=== PATIENT | female | born 1940 | race Caucasian/White ===

== ENCOUNTER 2018-11-03 13:32 | Outpatient (CLI) | payer MEDICARE, OTHER ==
--- NOTE | 2018-11-03 15:54 | Mammography Report ---
Reason: LUMP Procedure Date: 11/03/2018 Accession Number: [id number] / [id number] Procedure: YASSINE - Diagnostic Dig Bilat CPT Code: FULL RESULT: EXAM: Diagnostic Dig Bilat DATE: 11/03/2018 2:32 PM CLINICAL HISTORY: Diagnostic mammogram. Right breast pain. History of nulliparity. History of breast biopsy in the 1970s. TECHNIQUE: Bilateral CC and MLO views were obtained. COMPARISON: 08/22/2016 through 02/26/2011. FINDINGS: The breasts demonstrate scattered fibroglandular densities bilaterally. There are coarse typically benign calcifications. No suspicious calcifications, architectural distortion or masses identified. IMPRESSION: Benign findings RECOMMENDATION: Recommend routine annual Screening mammography unless otherwise clinically indicated. BIRADS CATEGORY 2: Benign findings STANDARD QUALIFYING STATEMENTS: 1. This examination was not reviewed with the aid of Computer-Aided Detection (CAD). 2. A negative or benign imaging report should not delay biopsy if clinically suspicious findings are present. Consider surgical consultation if warrented. More than 5% of cancers are not identified by imaging. 3. Dense breasts may obscure an underlying neoplasm. 4. This examination was reviewed with the aid of 3D imaging (tomography).
== END 2018-11-03 13:33 | disposition home or self-care (01) ==
LOC: DI 13:32
PROVIDERS: ATTEND Nurse Practitioner Family
DX: N64.4 Mastodynia (principal)
CPT/HCPCS: 77066

== ENCOUNTER 2020-06-20 12:54 | Outpatient (CLI) | payer MEDICARE, OTHER | END 2020-06-20 12:55 | disposition home or self-care (01) | LOC: COV 12:54 | PROVIDERS: ATTEND Family Medicine | DX: R05 Cough (principal); R06.02 Shortness of breath; R53.83 Other fatigue; M79.10 Myalgia, unspecified site; R19.7 Diarrhea, unspecified; Z20.828 Contact with and (suspected) exposure to other viral communicable diseases ==

== ENCOUNTER 2020-06-23 10:43 | Outpatient (CLI) | payer MEDICARE, OTHER ==
--- NOTE | 2020-06-23 11:54 | XRAY Report ---
PROCEDURE: Chest 2 View X-Ray INDICATIONS: Fatigue, dyspnea TECHNIQUE: 2 view(s) of the chest. COMPARISON: None. FINDINGS: Surgical changes and devices: None. Lungs and pleura: No pleural effusions or pneumothorax. Lungs are clear. Mediastinum: Mediastinal contours are normal. Heart size is normal. Bones and chest wall: No suspicious bony abnormalities. Soft tissues appear unremarkable. IMPRESSION: No acute cardiopulmonary process demonstrated radiographically. Reviewed by: Nate Guaman MD on 06/23/2020 11:52 AM PDT Approved by: Nate Guaman MD on 06/23/2020 11:52 AM PDT Station ID: [id number]
== END 2020-06-23 10:44 | disposition home or self-care (01) ==
LOC: DI 10:43
PROVIDERS: ATTEND Internal Medicine
DX: R06.09 Other forms of dyspnea (principal); Z13.6 Encounter for screening for cardiovascular disorders; R53.83 Other fatigue
CPT/HCPCS: 71046

== ENCOUNTER 2020-06-29 11:47 | Outpatient (CLI) | payer MEDICARE, OTHER | END 2020-06-29 11:48 | disposition home or self-care (01) | LOC: RT 11:47 | PROVIDERS: ATTEND Internal Medicine Cardiovascular Disease | DX: R06.09 Other forms of dyspnea (principal) | CPT/HCPCS: 93005 ==

== ENCOUNTER 2021-10-07 07:35 | Outpatient (CLI) | payer MEDICARE, OTHER ==
--- NOTE | 2021-10-08 09:19 | Ultrasound Report ---
PROCEDURE: Pelvic w/Transvaginal INDICATIONS: ACUTE PELVIC PAIN TECHNIQUE: Real-time scanning was performed of the pelvic organs, with image documentation. Additional endovagi nal scanning was necessary due to incomplete visualization of the adnexal and endometrial structures by transabdominal scanning. COMPARISON: None. FINDINGS: No pathologic free abdominal or pelvic fluid. Uterus: Uterus is anteflexed and normal in size at 5.1 x 1.9 I3.1 cm. The endometrium measures 2 mm in combined thickness. There is a small amount of debris-containing fluid in the endocervix. Simple nabothian cyst is also present. Ovaries: Neither ovary was seen. No suspicious adnexal masses. IMPRESSION: 1. Debris-containing fluid in the endocervix may indicate cervical stenosis. 2. No suspicious adnexal mass. Reviewed by: Josselyn Goldman MD on 10/08/2021 9:18 AM PST Approved by: Josselyn Goldman MD on 10/08/2021 9:18 AM PST Station ID: [id number]
== END 2021-10-07 07:36 | disposition home or self-care (01) ==
LOC: DI 07:35
PROVIDERS: ATTEND Obstetrics & Gynecology
DX: R10.2 Pelvic and perineal pain (principal)

== ENCOUNTER 2022-03-15 08:14 | Emergency (ER) | payer MEDICARE, OTHER ==
[2022-03-15 08:29] VITALS: BP 140/84
--- NOTE | 2022-03-15 08:48 | ED Physician Documentation ---
PD HPI URI - Stated complaint Stated Complaint: C+ FEVER/FATIGUE - Chief complaint Chief Complaint: Heent - History obtained from History obtained from: Patient - History of Present Illness Timing - onset: How many days ago (3) Timing duration: Days (3) Timing details: Gradual onset, Still present Associated symptoms: Nasal congestion, Sore throat, Dry cough. No: Fever, Dyspnea, NVD Contributing factors: Sick contact (was caring for her sister 5 days ago for illness, and her sister ended up testing positive for COVID. patient with some symptoms now and did home test this morning that was positive. PMD suggested to ER for antiviral. No recent testing of renal function. no history of renal insuff. No home meds.) Improves by: Rest Worsened by: Activity Similar symptoms before: Has not had sx before Recently seen: Not recently seen (texted with PMD only.) Review of Systems Constitutional: reports: Myalgias. denies: Fever Nose: reports: Rhinorrhea / runny nose (for 1-2 days), Congestion Throat: reports: Sore throat (for 3 days) Cardiac: denies: Chest pain / pressure Respiratory: reports: Cough. denies: Dyspnea GI: denies: Abdominal Pain, Nausea, Vomiting, Diarrhea Skin: denies: Rash Neurologic: denies: Generalized weakness, Headache PD PAST MEDICAL HISTORY - Past Medical History Cardiovascular: None Respiratory: None Neuro: None Endocrine/Autoimmune: None - Allergies Allergies/Adverse Reactions: Allergies Allergy/AdvReac Type Severity Reaction Status Date / Time Penicillins Allergy Rash Verified 03/15/22 08:29 PD ED PE NORMAL - Vitals Vital signs reviewed: Yes - General General: Alert and oriented X 3, Well developed/nourished - HEENT HEENT: Moist mucous membranes, Pharynx benign - Neck Neck: Supple, no meningeal sign, No adenopathy - Cardiac Cardiac: RRR, No murmur - Respiratory Respiratory: Clear bilaterally - Abdomen Abdomen: Soft, Non tender - Derm Derm: Normal color, Warm and dry - Neuro Neuro: Alert and oriented X 3, No motor deficit, Normal speech Results - Vitals Vitals: Vital Signs - 24 hr 03/15/22 08:27 Temperature 35.9 C L Heart Rate 93 Respiratory 16 Rate Blood Pressure 140/84 H O2 Saturation 96 Oxygen O2 Source Room air - Labs Labs: Laboratory Tests 03/15/22 09:15 Sodium 135 Potassium 3.8 Chloride 99 L Carbon Dioxide 25 Anion Gap 11.0 BUN 9 Creatinine 1.0 Estimated GFR (MDRD) 53 L Glucose 109 H Calcium 9.4 Total Bilirubin 1.0 AST 22 ALT 18 Alkaline Phosphatase 83 Total Protein 7.4 Albumin 3.9 Globulin 3.5 Albumin/Globulin Ratio 1.1 Lipase 48 PD MEDICAL DECISION MAKING - ED course Complexity details: considered differential (Given age, she would be at higher risk for progression of disease. No recent renal function so can test that this morning and decision of best dosing for Paxlovid.), d/w patient Departure - Departure Disposition: Home, Self Care Clinical Impression: COVID-19 Condition: Stable Record reviewed to determine appropriate education?: Yes Follow-Up: Angel Bright MD [Primary Care Provider] - Comments: Take the pack Slo-Bid twice daily for 5 days/packet kit instructions. Stay well-hydrated. Tylenol if needed for fevers or pains. Return if worsening symptoms or trouble breathing. Your blood test shows just a very mild impairment of the kidney function so we gave you the dose appropriate for that.
[2022-03-15 09:38] LABS: ALBUMIN 3.9 g/dL (3.2-5.5); ALBUMIN/GLOBULIN RATIO 1.1 (1.0-2.2); CALCIUM 9.4 mg/dL (8.5-10.3); POTASSIUM 3.8 mmol/L (3.5-5.0); TOTAL PROTEIN 7.4 g/dL (6.7-8.2)
[2022-03-15] MEDS ORDERED: NIRMATRELVIR/RITONAVIR (RENAL) PREPACK PO STA (09:47)
== END 2022-03-15 09:56 | disposition home or self-care (01) ==
LOC: ED 08:14
DX: U07.1 COVID-19 (principal)
CPT/HCPCS: 36415; 80053; 83690; 99282; 99283; J3490

== ENCOUNTER 2023-04-10 09:26 | Outpatient (CLI) | payer MEDICARE, OTHER ==
[2023-04-10 09:41] LABS: BASOPHILS # (AUTO) 0.1 10^3/uL (0.0-0.1); BASOPHILS % (AUTO) 1.2 %; EOSINOPHILS # (AUTO) 0.3 10^3/uL (0.0-0.7); HCT - HEMATOCRIT 45.8 % (37.0-47.0); HGB - HEMOGLOBIN 14.9 g/dL (12.0-16.0); LYMPHOCYTES # (AUTO) 3.3 10^3/uL (1.5-3.5); LYMPHOCYTES % (AUTO) 39.3 %; MEAN CORPUSCULAR HEMOGLOBIN 29.6 pg (27.0-31.0); MEAN CORPUSCULAR HGB CONC 32.5 g/dL (32.0-36.0); MEAN CORPUSCULAR VOLUME 90.9 fL (81.0-99.0); MEAN PLATELET VOLUME 8.4 fL (7.9-10.8); MONOCYTES # (AUTO) 0.6 10^3/uL (0.0-1.0); NEUTROPHILS # (AUTO) 4.1 10^3/uL (1.5-6.6); NEUTROPHILS % (AUTO) 49.3 %; PLT - PLATELET COUNT 267 10^3/uL (130-450); RED BLOOD COUNT 5.04 10^6/uL (4.20-5.40); RED CELL DISTRIBUTION WIDTH 12.7 % (12.0-15.0); WHITE BLOOD COUNT 8.4 x10^3/uL (4.8-10.8)
[2023-04-10 09:57] LABS: ALBUMIN 4.2 g/dL (3.2-5.5); ALBUMIN/GLOBULIN RATIO 1.1 (1.0-2.2); ALKALINE PHOSPHATASE 83 IU/L (42-121); ALT ALANINE AMINOTRANSFERASE 20 IU/L (10-60); AST ASPARTATE AMINOTRANSFERASE 23 IU/L (10-42); BILIRUBIN,TOTAL 0.9 mg/dL (0.2-1.0); BUN - BLOOD UREA NITROGEN 16 mg/dL (6-20); CALCIUM 9.2 mg/dL (8.5-10.3); CARBON DIOXIDE - CO2 23 mmol/L (21-32); CHLORIDE 107 mmol/L (101-111); CHOLESTEROL 306 mg/dL; CREATININE 0.8 mg/dL (0.4-1.0); GFR - MDRD 69 (>89); GLUCOSE 124 mg/dL (70-100); HDL CHOLESTEROL 77 mg/dL; LDL CHOLESTEROL,CALCULATED 195 mg/dL; LDL/HDL RATIO 2.5 (<4.4); POTASSIUM 3.9 mmol/L (3.5-5.0); SODIUM 138 mmol/L (135-145); TOTAL PROTEIN 7.9 g/dL (6.7-8.2); TRIGLYCERIDES 169 mg/dL; VLDL CHOLESTEROL 34 mg/dL
[2023-04-10 10:09] LABS: THYROID STIMULATING HORMONE 3.73 uIU/mL (0.34-5.60)
== END 2023-04-10 09:27 | disposition home or self-care (01) ==
LOC: LAB 09:26
PROVIDERS: ATTEND Physician Assistant
DX: Z00.00 Encounter for general adult medical examination without abnormal findings (principal); M81.0 Age-related osteoporosis without current pathological fracture; L90.0 Lichen sclerosus et atrophicus; Z13.220 Encounter for screening for lipoid disorders; Z13.29 Encounter for screening for other suspected endocrine disorder
CPT/HCPCS: 36415; 80053; 80061; 83721; 84443; 85025

== ENCOUNTER 2023-04-15 08:07 | Outpatient (CLI) | payer MEDICARE, OTHER ==
--- NOTE | 2023-04-15 09:26 | DEXA Report ---
PROCEDURE: Dexa Spine and/or Hip INDICATIONS: OSTEOPOROSIS TECHNIQUE: Dual energy x-ray absorptiometry (DXA) was performed on a happin! System. Regions measur ed are the AP Spine, femoral neck, and if needed forearm. COMPARISON: None FINDINGS: Lumbar Spine: Bone Mineral Density 0.86 g/cm/cm,T score -2.7. Left Femoral Neck: Bone Mineral Density 0.91 g/cm/cm, T score -0.9. Left Hip: Bone Mineral Density 0.74 g/cm/cm,T score -2.1. (T score greater or equal to -1.0: NORMAL) (T score from -1.1 to -2.4: OSTEOPENIA) (T score less than or equal to -2.5 to: OSTEOPOROSIS) Impression: By WHO criteria, this patient has osteoporosis. Osteoporosis of the lumbar spine. Osteopenia of the hip. Patients with diagnosis of osteoporosis or osteopenia should have regular bone mineral density assess ment. For those eligible for Medicare, routine testing is allowed once every 2 years. Testing frequ ency can be increased for patients who have rapidly progressing disease or for those who are receivin g medical therapy to restore bone mass. Reviewed by: Rudy Alberts MD on 04/15/2023 9:25 AM PDT Approved by: Rudy Alberts MD on 04/15/2023 9:25 AM PDT Station ID: [id number]
== END 2023-04-15 08:08 | disposition home or self-care (01) ==
LOC: DI 08:07
PROVIDERS: ATTEND Physician Assistant
DX: M81.0 Age-related osteoporosis without current pathological fracture (principal)

== ENCOUNTER 2023-12-02 12:51 | Outpatient (CLI) | payer MEDICARE, OTHER ==
--- NOTE | 2023-12-03 11:31 | Mammography Report ---
BILATERAL DIGITAL SCREENING MAMMOGRAM 3D/2D: 12/02/2023 CLINICAL: Routine screening. Comparison is made to exams dated: 11/03/2018 mammogram and 08/22/2016 mammogram - [facility]. There are scattered areas of fibroglandular density in both breasts (category b / 25%-50% glandular t issue). No significant masses, calcifications, or other findings are seen in either breast. There has been no significant interval change. IMPRESSION: NEGATIVE There is no mammographic evidence of malignancy. A 1 year screening mammogram is recommended. Based on the Tyrer Cuzick model (a risk assessment model) the patient's lifetime risk is 0.4% and her 10 year risk is 0.0%. According to the ACR, ACS, and NCCN guidelines, an annual breast MRI exam gino g with mammogram is recommended if the patient's lifetime risk is 20% or greater. This exam was interpreted at Station ID: [id number]. NOTE: For mammograms, a report in lay terms will be sent to the patient. Approximately 15% of breast malignancies will not be visualized mammographically. In the management of a palpable breast mass, a negative mammogram must not discourage biopsy of a clinically suspicious lesion. Electronically Signed By: Cristiano espinosa/lopez:12/02/2023 14:45:59 letter sent: No_Letter ACR BI-RADS Category 1: Negative 3341F PARENCHYMAL PATTERN: (A) - The breast(s) demonstrate(s) scattered fibroglandular densities. BI-RADS CATEGORY: (1) - 1 Mammogram [id number] 1 year screening LATERALITY: (B)
== END 2023-12-02 12:52 | disposition home or self-care (01) ==
LOC: DI 12:51
PROVIDERS: ATTEND Internal Medicine
DX: Z12.31 Encounter for screening mammogram for malignant neoplasm of breast (principal); R92.323 Mammographic fibroglandular density, bilateral breasts

== ENCOUNTER 2024-01-12 07:12 | Outpatient (CLI) | payer MEDICARE, OTHER ==
--- NOTE | 2024-01-12 14:14 | CT Report ---
PROCEDURE: Head WO INDICATIONS: AMNESTIC DISORDER DUE TO KNOWN PHYSIOLOGICAL CONDI TECHNIQUE: Noncontrast 4.5 mm thick angled axial sections acquired from the foramen magnum to the vertex. For r adiation dose reduction, the following was used: automated exposure control, adjustment of mA and/or kV according to patient size. COMPARISON: None. FINDINGS: Image quality: Excellent. The ventricular system and cortical sulci demonstrate atrophy, consistent for patient's stated age. There are areas of hypodensity in the periventricular and subcortical white matter. There is no acut e intra or extra-axial fluid collection. No acute hemorrhage, mass lesion or midline shift. Brainst em is unremarkable. Globes are symmetrical. Sinuses are aerated. Osseous structures are intact. IMPRESSION: 1. No acute intracranial process. 2. Moderate atrophy and chronic microvascular ischemic changes. Reviewed by: Edith Sethi MD on 01/12/2024 2:13 PM PDT Approved by: Edith Sethi MD on 01/12/2024 2:13 PM PDT Station ID: [id number]
== END 2024-01-12 07:13 | disposition home or self-care (01) ==
LOC: DI 07:12
PROVIDERS: ATTEND Internal Medicine
DX: F04 Amnestic disorder due to known physiological condition (principal); G31.89 Other specified degenerative diseases of nervous system; I67.82 Cerebral ischemia

== ENCOUNTER 2024-04-23 07:59 | Outpatient (CLI) | payer MEDICARE, OTHER ==
[2024-04-23 08:32] LABS: ALBUMIN 4.4 g/dL (3.2-5.5); ALKALINE PHOSPHATASE 89 IU/L (42-121); ALT ALANINE AMINOTRANSFERASE 12 IU/L (10-60); AST ASPARTATE AMINOTRANSFERASE 18 IU/L (10-42); BILIRUBIN,DIRECT 0.14 mg/dL (0.03-0.18); BILIRUBIN,TOTAL 0.8 mg/dL (0.2-1.0); CHOL/HDL RATIO 3.6 (<4.4); CHOLESTEROL 269 mg/dL; GLUCOSE 101 mg/dL (74-104); HDL CHOLESTEROL 74 mg/dL; LDL CHOLESTEROL,CALCULATED 171 mg/dL; LDL/HDL RATIO 2.3 (<4.4); TOTAL PROTEIN 7.6 g/dL (6.4-8.9); TRIGLYCERIDES 122 mg/dL (48-352); VLDL CHOLESTEROL 24 mg/dL
== END 2024-04-23 08:00 | disposition home or self-care (01) ==
LOC: LAB 07:59
PROVIDERS: ATTEND Internal Medicine
DX: E53.8 Deficiency of other specified B group vitamins (principal); F04 Amnestic disorder due to known physiological condition; E78.49 Other hyperlipidemia; M81.0 Age-related osteoporosis without current pathological fracture
CPT/HCPCS: 36415; 80061; 80076; 82607; 82947; 83721